=== PATIENT | female | born 1995 | race Caucasian/White ===

== ENCOUNTER 2017-02-26 07:27 | Day surgery (SDC) | payer BC ==
[~2017-02-26] VITALS: Ht 172.7 cm; Wt 56.7 kg
--- NOTE | ~2017-02-26 | OP ---
PATIENT NAME: CARLOS MANUEL ALDANA MEDICAL RECORD: [id number] :[birth year] LOCATION:D[facility] ADMISSION DATE: SURGEON: JUAN A ORELLANA MD DATE OF OPERATION: 02/26/2017 PREOPERATIVE DIAGNOSES: Chronic tonsillitis, tonsillar hypertrophy and septal deviation, nasal obstruction. POSTOPERATIVE DIAGNOSES: Chronic tonsillitis, tonsillar hypertrophy and septal deviation, nasal obstruction. PROCEDURES: 1. Septoplasty. 2. Outfracture of inferior turbinates. 3. Tonsillectomy. SURGEON: Juan A Orellana MD ANESTHESIA: General orotracheal. BLOOD LOSS: Less than 5 cc. SPECIMENS: Right and left tonsil. PACKING: Walton splints bilaterally. COMPLICATIONS: None. DISPOSITION: Recovery stable. DESCRIPTION OF PROCEDURE: The patient was brought to the operating room and placed in supine position, sedated and intubated by anesthesia. The table was turned 90 degrees. Head drape was applied and she was positioned for tonsillectomy. Using a headlight, the nose was examined using nasal speculum. She had a very severe left septal deviation with the nasal septum and caudal septum clearly visible in the left nostril, none in the columella at all. The anterior septum, floor of the nose and turbinates were injected with a total of 1.5 cc of 1% lidocaine with 1:1000 epinephrine and Afrin pledgets were placed bilaterally. Then, using a headlight, a Sindhu-Enzo mouth gag was carefully inserted and elevated on a towel on the chest. The palate was examined and palpated. It was normal. The nasopharynx was examined using a mirror. There was no significant adenoid tissue. The right tonsil was grasped at the superior pole with a straight Allis clamp. Spatula tip cautery on a setting of 9 was used to dissect out the tonsil along its capsule, preserving the anterior and posterior tonsillar pillars. The left tonsil was removed in the same fashion. Then, the pharynx was irrigated. Tonsillar fossae were agitated. Suction cautery on a setting of 20 was used to control minimal oozing. With the field clean and dry, the Sindhu-Enzo mouth gag was let down and removed. All the Afrin pledgets were removed. The left-sided Mac incision was made and ipsilateral mucoperichondrial flap was elevated. This was dissected back down on caudal septum as well and a contralateral mucoperichondrial flap was elevated as well. Using blunt scissors, dissection between the medial crura was dissected out the pocket to hold the septum in to the midline in to its normal position. A large septal spur on the left side was dissected out with a caudal and then a chisel and removed in the redundant nasal septum from the left side OPERATIVE REPORT [id number] CARLOS MANUEL ALDANA of the nose and relaxing incisions were made to allow it to fall back down to the midline. A bony spur posteriorly was removed by elevating the flap on the left side and then the bony cartilaginous junction was disarticulated and a contralateral posterior mucoperichondrial flap was elevated and scissors were used to make a cut above and below that, the bony spur was removed. Once that was done, the septum was replaced into the pocket of the columella. She had good tip support, plenty of cartilage there and the septum was closed with interrupted 3-0 chromic. Both inferior turbinates were outfractured with a Mifflin elevator. The nasopharynx was suctioned. Walton splints were placed bilaterally with mupirocin ointment and sutured through the anterior membranous septum with a 2-0 Prolene on a Warner needle. She was awakened, extubated, and transported to recovery in good condition. No complications. TRANSINT:[id number] Voice Confirmation ID: [id number] DOCUMENT ID: [id number] JUAN A ORELLANA MD CC: [id number] DICTATION DATE: 02/26/17 1248 CORRECTIONAL CASE RECORDS SUPERVISOR: 02/26/17 221 [facility] 02/26/17 [facility] [address] [place] [address]
[~2017-02-26 07:27] MED LIST: ZOLOFT50 MG PO
[2017-02-26] MEDS ORDERED: XULANE (09:19)
[2017-02-26 09:24] LABS: HCG URINE NEGATIVE (NEGATIVE)
[2017-02-26 09:33] VITALS: Ht 172.7 cm; Wt 56.7 kg
--- NOTE | 2017-02-26 09:38 | HP ---
PATIENT: BHARGAVI ALDANA MEDICAL RECORD: [id number] ACCOUNT: [id number] LOCATION:[facility] : 96 ADMISSION DATE: 02/26/17 HISTORY AND PHYSICAL EXAMINATION Preoperative History and Physical HISTORY OF PRESENT ILLNESS: Bhargavi is 21 years old. She has been having tonsil problems for several years as well as refractory nasal obstruction. No medications have ever helped. She is being admitted for septoplasty, bilateral inferior turbinate reduction and tonsillectomy. PAST MEDICAL HISTORY: Includes seasonal allergies. CURRENT MEDICATIONS: Xulane patch. ALLERGIES: No known drug allergies. PHYSICAL EXAMINATION: GENERAL: She is healthy-appearing, developmentally normal. FACE: Normal, symmetric, no lesions. EYES: Sclerae and conjunctivae are normal. EARS: Canals and TMs are normal. NOSE: Severe septal deviation affecting the size and shape of the columella and nostril and intranasal septal spur obstructing the nasal cavity as well. Large turbinates. ORAL CAVITY AND OROPHARYNX: She has 4+ kissing caseous tonsils, normal palate. NECK: Small jugulodigastric adenopathy bilaterally. CHEST: Clear. CARDIOVASCULAR: Regular rate and rhythm. No murmurs. EXTREMITIES: Normal. IMPRESSION: Chronic tonsillitis, tonsillar hypertrophy, nasal obstruction, septal deviation and turbinate hypertrophy. PLAN: Septoplasty, bilateral inferior turbinate reduction and tonsillectomy. TRANSINT:[id number] Voice Confirmation ID: [id number] DOCUMENT ID: [id number] JUAN A REGAN MD at 0938 CC: [id number] DICTATION DATE: 02/22/17 1516 MOUNTER AUTOMATIC: 02/22/17 1601 [facility] [address] [place] [id number]
== END 2017-02-26 17:10 | disposition home or self-care (01) ==
LOC: D.OPS 07:27 → D.PAN 08:45 → D.OPS 09:30
PROVIDERS: Otolaryngology
DX: J34.2 Deviated nasal septum (principal); J35.01 Chronic tonsillitis; J34.3 Hypertrophy of nasal turbinates